=== PATIENT | female | born 1955 | race Caucasian/White ===

== ENCOUNTER 2018-09-30 06:30 | Day surgery (SDC) ==
[2017-06-26 03:08] VITALS: BMI 29.8
[2018-09-30 06:54] VITALS: TEMP 97.8
[2018-09-30] MEDS ORDERED: LIDOCAINE 1% 20 ML MDV ID STA (06:56)
[2018-09-30] MEDS ORDERED: DIPRIVAN 20 ML VIAL IVP ONE (08:00)
[2018-09-30 13:22] VITALS: BP 151/84
--- NOTE | 2018-10-01 10:54 | OP ---
PROCEDURE: EGD (ESOPHAGOGASTRODUODENOSCOPY) with TTS Balloon dilation. ENDOSCOPIST: Kimmie SHORT M.D. INDICATION: Hiatal hernia, dysphagia, reflux INSTRUMENT: [id number]-190. MEDICATION: PER ANESTHESIA. PROCEDURE: The patient was positioned for endoscopy. The oropharynx was intubated with the endoscope was advanced through the esophagus and into the stomach from there into the duodenum. The duodenum was normal. The pylorus was patent. The antrum is normal. Hiatal hernia is noted on retroflex examine. 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 The scope was then withdrawn back through the esophagus. A TTS sequential balloon 15height and 16.5 height at 18mm was then advanced and dilated to 18mm. She tolerated the procedure without immediate complications. PLAN: 1. Repeat as needed 2. Continue proton pump inhibitor therapy 3. We will see her back as needed CC: Dr. Vadim Tejada [facility]
== END 2018-09-30 08:53 | disposition home or self-care (01) ==
LOC: SURG 06:30
PROVIDERS: ATTEND Internal Medicine Gastroenterology
DX: R13.10 Dysphagia, unspecified (principal); K21.9 Gastro-esophageal reflux disease without esophagitis; K44.9 Diaphragmatic hernia without obstruction or gangrene